=== PATIENT | female | born 1975 | race African-American/Black ===

== ENCOUNTER 2018-06-02 10:09 | Day surgery (SDC) | payer BC ==
[2018-06-02] MEDS ORDERED: FENTAnyl 50 MCG/ML VIAL (12:43)
[2018-06-02] MEDS ORDERED: MIDAZOLAM 1 MG/ML 2 ML INJ ×3 (12:43→12:44)
== END 2018-06-02 13:15 | disposition home or self-care (01) ==
LOC: GIL 10:09
DX: K21.9 Gastro-esophageal reflux disease without esophagitis (principal); K29.70 Gastritis, unspecified, without bleeding
CPT/HCPCS: 43239; 88305